=== PATIENT | female | born 1980 | race Caucasian/White ===

== ENCOUNTER 2016-07-03 21:36 | Emergency (ER) | payer MEDICAID, OTHER ==
[~2016-07-03] VITALS: Ht 165.1 cm; Wt 52.2 kg
--- NOTE | 2016-07-03 21:50 | NUR ---
PT HAD WISDOM TOOTH REMOVED 3 DAYS AGO,AND IT CONTINUES TO BLEED.SEEN BY DENTIST 2X TODAY AND HE PUT SOME TYPE OF MED ON IT.NOT WORKING...PT IS AWAKE, ALERT, NO RESP DISTRESS NOTED OR REPORTED UPON ASSESSMENT. MD AT BEDSIDE...
[2016-07-03] MEDS ORDERED: TYLENOL #3 (22:00)
[2016-07-03] MEDS ORDERED: AMOXICILLIN (22:00)
[2016-07-04] MEDS ORDERED: PHENYLEPHRINE 1% (EXTRA STR) NASAL SPRAY NS ONE ×2 (00:01)
--- NOTE | 2016-07-04 00:45 | NUR ---
Patient discharged to home in stable conditon. Written and verbal after care instructions given. Patient verbalizes understanding of instructions. Pt walked out of ER unassisted with belongings and boyfriend at side...
[2016-07-04 00:46] VITALS: BP 126/89
== END 2016-07-04 00:48 | disposition home or self-care (01) ==
LOC: ER 21:36
DX: K91.841 Postprocedural hemorrhage of a digestive system organ or structure following other procedure (principal)
CPT/HCPCS: A4663